=== PATIENT | male | born 1980 | race Hispanic/Latino ===

== ENCOUNTER 2018-01-16 16:41 | Observation (INO) | payer MEDICAID, OTHER ==
[2018-01-16 16:41] VITALS: BMI 30.7
--- NOTE | 2018-01-16 17:25 | ED PDOC ---
HPI: Chest Pain Chief Complaint (Provider): chest pain History Per: Patient History/Exam Limitations: no limitations Onset/Duration Of Symptoms: Days (3) Current Symptoms Are (Timing): Constant Pain Scale Rating Of: 5 Quality: Pressure, Other Associated Symptoms: Other (lightheadedness) Alleviating Factors: Other (food, Aleve) <Tiny May - Last Filed: 01/16/18 19:04> <Ana Mcgrath - Last Filed: 01/16/18 20:52> Time Seen by Provider: 01/16/18 17:12 Chief Complaint (Nursing): Chest Pain Additional Complaint(s): 37 yo, m, PMhx/o Asthma presents to ED c/o left side chest pain started 3 days ago, constant, 5/10 intensity, pressure, no exertional, no pleuritic, no reproducible, not radiated, partially alleviated with Aleve and when eating, . Reports chest pain is associated with 1 non-bloddy vomiting a day after chest pain started and occs lightheadedness. Denies fever, cough, runny nose, nasal congestion, acute SOB, pedal loretta, heartburn. Reports chronic SOB secondary to obesity. Patient reports has been using cocaine for the last 4-5 years, last used 6 days ago. PMD: Dr Ruslan Stahl (Tiny May) Supervising Attending Note - Supervising Attending Note The Documented history was done by the: Physician Stock Buyer The documented physical exam was done by the: Physician Stock Buyer, Attending Physician - Attestation: I have personally seen and examined this patient.: Yes I have fully participated in the care of the patient.: Yes I have reviewed all pertinent clinical information: Yes <Ana Mcgrath - Last Filed: 01/16/18 20:52> Past Medical History Reviewed: Historical Data, Nursing Documentation, Vital Signs - Medical History PMH: Asthma Denies: Depression - Surgical History Surgical History: No Surg Hx - Family History Family History: States: No Known Family Hx - Social History Alcohol: Social Drugs: Cocaine (for the last 4-5 years. last use 6 days ago. ) <Tiny May - Last Filed: 01/16/18 19:04> <Ana Mcgrath - Last Filed: 01/16/18 20:52> Vital Signs: Last Vital Signs Temp 98.1 F 01/16/18 20:41 Pulse 84 01/16/18 20:41 Resp 18 01/16/18 20:41 BP 127/79 01/16/18 20:41 Pulse Ox 98 01/16/18 20:41 - Home Medications Home Medications: Ambulatory Orders Medication Instructions Recorded Asthma Pump PRN 12/28/12 Albuterol HFA [Ventolin HFA 90 0.09 mg IH Q4 #1 puff 07/05/15 mcg/actuation (8 g)] Azithromycin [Zithromax Z-Сергей] 250 mg PO DAILY #6 tab 07/05/15 Guaifenesin [Mucinex] 1,200 mg PO BID #20 ter 07/05/15 Ciprofloxacin HCl [Cipro] 500 mg PO BID #20 tab 07/06/15 Metronidazole [Flagyl] 500 mg PO TID #30 tab 07/06/15 - Allergies Allergies/Adverse Reactions: Allergies Allergy/AdvReac Type Severity Reaction Status Date / Time No Known Allergies Allergy Verified 07/06/15 08:46 VERONIQUE Risk Score for UA/NSTEMI - VERONIQUE Risk Score Age > 64: NO 3 or more CAD Risk Factors: NO Known CAD (Stenosis greater than 50%): NO Aspirin use in past 7 days: NO Severe Angina: NO EKG ST changes greater than 0.5mm: NO Positive Cardiac Marker: NO VERONIQUE Score: 0 Risk %: 5% <Tiny May - Last Filed: 01/16/18 19:04> Curb-65 Severity Score - CURB-65 Severity Score Confusion: No Respiratory Rate greater than/equal to 30: No Systolic BP <90 or Diastolic BP less than/equal 60mmHg: No Age >64: No Curb-65 Score: 0 Percentage 30-day mortality: 0.6% <Tiny May - Last Filed: 01/16/18 19:04> Wells Criteria for PE - Wells Criteria for Pulmonary Embolism Clinical Signs and Symptoms of DVT: No P.E is #1 Diagnosis, or Equally Likely: No Heart Rate >100: No Immobilization at least 3 days;Surgery previous 4 weeks: No Previous, objectively diagnosed PE or DVT: No Hemoptysis: No Malignancy w/treatment within 6 months, or palliative: No Total Score: 0 <Tiny May - Last Filed: 01/16/18 19:04> Review of Systems ROS Statement: Except As Marked, All Systems Reviewed And Found Negative Cardiovascular: Positive for: Chest Pain, Light Headedness Gastrointestinal: Positive for: Vomiting <Tiny May - Last Filed: 01/16/18 19:04> Physical Exam - Reviewed Nursing Documentation Reviewed: Yes Vital Signs Reviewed: Yes - Physical Exam Appears: Positive for: Well, No Acute Distress Head Exam: Positive for: ATRAUMATIC, NORMOCEPHALIC Skin: Positive for: Normal Color Eye Exam: Positive for: Normal appearance ENT: Positive for: Normal ENT Inspection Neck: Positive for: Normal Cardiovascular/Chest: Positive for: Regular Rate, Rhythm. Negative for: Murmur Respiratory: Positive for: Normal Breath Sounds. Negative for: Crackles, Rales , Rhonchi, Wheezing Gastrointestinal/Abdominal: Positive for: Soft. Negative for: Tenderness, Mass , Distended, Guarding Back: Positive for: Normal Inspection Extremity: Positive for: Normal ROM. Negative for: Tenderness, Pedal Edema, Calf Tenderness Neurologic/Psych: Positive for: Alert <Tiny May - Last Filed: 01/16/18 19:04> - Laboratory Results Result Diagrams: 01/16/18 17:27 01/16/18 17:27 - ECG O2 Sat by Pulse Oximetry: 99 <Tiny May - Last Filed: 01/16/18 19:04> - Laboratory Results Result Diagrams: 01/16/18 17:27 01/16/18 17:27 <Ana Mcgrath - Last Filed: 01/16/18 20:52> Medical Decision Making <Tiny May - Last Filed: 01/16/18 19:04> <Ana Mcgrath - Last Filed: 01/16/18 20:52> Medical Decision Makin:20 Impression Chest pain secondary to cocaine use Old inferior MD Differential ACS, Acute pericarditis, Costochondritis CBC,CMP, troponin, Phosp, Mag Utox EKG CXR EKG: NSR, left axis deviation, inferior infartion age undetermined. Labs reviewed: CBC normal CMP: BUN/Cr 22/1.3 ALT 103, CK:226 Patient reports chest pain persists. Aspirin given. will be admitted for Observation (Tiny May) Disposition - Disposition Disposition Time: 19:05 <Tiny May - Last Filed: 01/16/18 19:04> <Ana Mcgrath - Last Filed: 01/16/18 20:52> - Clinical Impression Clinical Impression: Chest pain, Acute chest pain - Disposition Condition: FAIR
[2018-01-16 17:41] LABS: BASO % 0.5 % (0.0-2.0); EOS # 0.3 K/uL (0.0-0.7); EOS % 3.5 % (0.0-4.0); LYMPH # 2.7 K/uL (1.0-4.3); LYMPH % 30.8 % (20.0-40.0); MEAN CELL VOLUME 84.4 fl (80.0-94.0); MEAN CORPUSCULAR HEMOGLOBIN 28.2 pg (27.0-31.0); MEAN CORPUSCULAR HGB CONC 33.5 g/dL (33.0-37.0); MEAN PLATELET VOLUME 9.3 fl (7.2-11.7); MONO # 0.6 K/uL (0.0-0.8); MONO % 6.6 % (0.0-10.0); NEUT # 5.2 K/uL (1.8-7.0); NEUT % 58.6 % (50.0-75.0); NRBC % 0.1 % (0.0-0.0); RBC 5.31 Mil/uL (4.40-5.90); RED CELL DISTRIBUTION WIDTH 14.6 % (11.5-14.5); WHITE BLOOD COUNT 8.9 K/uL (4.8-10.8)
[2018-01-16 17:43] LABS: INR 1.1 (0.9-1.2); PARTIAL THROMBOPLASTIN TIME 30.6 Seconds (25.6-37.1); PROTHROMBIN TIME 12.1 Seconds (9.8-13.1)
[2018-01-16 18:04] LABS: ALBUMIN 3.9 g/dL (3.5-5.0); ALT/SGPT 102 U/L (21-72); AST/SGOT 51 U/L (17-59); BLOOD UREA NITROGEN 22 mg/dl (9-20); CALCIUM 9.1 mg/dL (8.4-10.2); GFR AFRICAN-AMERICAN > 60; GFR NON-AFRICAN AMERICAN > 60
[2018-01-16 19:15] LABS: BARBITURATES, UR NEGATIVE (NEGATIVE); BENZODIAZEPINES, UR NEGATIVE (NEGATIVE); OPIATES, UR NEGATIVE (NEGATIVE); PHENCYCLIDINE, UR POSITIVE (NEGATIVE)
[2018-01-16] MEDS ORDERED: Albuterol-Ipratrop 3 mg / 0.5 (3 ml) UD INH PRN (23:43)
[2018-01-17 05:24] VITALS: RESP 18
[2018-01-17] MEDS ORDERED: Influenza Vaccine 18yr & older 0.5 ML/45 MCG SYR IM ONE (06:00)
[2018-01-17 08:12] VITALS: O2SAT 97
[2018-01-17] MEDS ORDERED: Enoxaparin 40 mg Syringe SC SCH (09:00)
--- NOTE | 2018-01-17 10:51 | RAD ---
HISTORY: Chest pain. COMPARISON: Comparison made with prior chest radiograph 07/04/2015. TECHNIQUE: Chest PA and lateral FINDINGS: LUNGS: No active pulmonary disease. Previously noted infiltrate right upper lobe resolved. PLEURA: No significant pleural effusion identified. No pneumothorax apparent. CARDIOVASCULAR: Normal. OSSEOUS STRUCTURES: No significant abnormalities. VISUALIZED UPPER ABDOMEN: Normal. OTHER FINDINGS: None. IMPRESSION: No active disease. Interval resolution previously noted right upper lobe infiltrate
--- NOTE | 2018-01-17 11:10 | CARD ---
APPROVED REPORT EXAM: Two-dimensional and M-mode echocardiogram with Doppler and color Doppler. Other Information Quality : GoodRhythm : NSR INDICATION Chest Pain 2D DIMENSIONS IVSd1.22 (0.7-1.1cm)LVDd3.82 (3.9-5.9cm) LVOT Diameter2.12 (1.8-2.4cm)PWd0.98 (0.7-1.1cm) IVSs1.35 (0.8-1.2cm)LVDs2.31 (2.5-4.0cm) FS (%) 39.4 %PWs1.18 (0.8-1.2cm) M-Mode DIMENSIONS Left Atrium (MM)3.61 (2.5-4.0cm)IVSd1.38 (0.7-1.1cm) Aortic Root3.36 (2.2-3.7cm)LVDd4.47 (4.0-5.6cm) Aortic Cusp Exc.2.29 (1.5-2.0cm)PWd1.19 (0.7-1.1cm) IVSs2.23 cmFS (%) 52 % LVDs2.12 (2.0-3.8cm)PWs1.85 cm Mitral Valve MV E Fvvrxxox73.0cm/sMV DECEL [id number] A Kmllkask46.3cm/s MV SZS84rkE/A ratio1.1MVA (PHT)3.27cm2 TDI Lateral E' Peak V10.51cm/sMedial E' Peak V6.84cm/sE/Lateral E'5.2 E/Medial E'8.0 Pulmonary Valve PV Peak Nvggnoma692.2cm/s LEFT VENTRICLE The left ventricle is normal size. There is normal left ventricular wall thickness. The left ventricular function is normal. The left ventricular ejection fraction is within the normal range. The Ejection Fraction is 65-70%. There is normal LV segmental wall motion. The left ventricular diastolic function is normal. RIGHT VENTRICLE The right ventricle is normal size. The right ventricular systolic function is normal. ATRIA The left atrium size is normal. The right atrium size is normal. AORTIC VALVE The aortic valve is normal in structure. No aortic regurgitation is present. There is no aortic valvular stenosis. MITRAL VALVE The mitral valve is normal in structure. There is no mitral valve stenosis. There is no mitral valve regurgitation noted. TRICUSPID VALVE The tricuspid valve is normal in structure. There is no tricuspid valve regurgitation noted. PULMONIC VALVE The pulmonary valve is normal in structure. There is no pulmonic valvular regurgitation. GREAT VESSELS The aortic root is normal in size. The IVC is normal in size and collapses >50% with inspiration. PERICARDIAL EFFUSION The pericardium appears normal. <Conclusion> The left ventricle is normal size. The left ventricular function is normal. The left ventricular ejection fraction is within the normal range. The Ejection Fraction is 65-70%.
[2018-01-17 12:09] VITALS: BP 134/80; PULSE 79; TEMP 97.6
--- NOTE | 2018-01-17 12:12 | CARD ---
APPROVED REPORT EKG Measurement Heart [id number] <Conclusion> Normal sinus rhythm Left axis deviation Inferior infarct, age undetermined Abnormal ECG
--- NOTE | 2018-01-18 05:11 | CP.PCM.HP ---
History of Present Illness - History of Present Illness History of Present Illness: Cc: Chest pain 37 year old male with a pmhx of asthma presents to ED with c/o of left sided chest pain that started 3 days ago. States the pain is constant, feels like pressure with an intensity of 5/10. The pain is not exertional, not reproducible , not radiated. Pain is relieved partially by Aleve and when eating, . Reports chest pain was associated with one non-bloody vomiting a day after chest pain started. He reports occasional lightheadedness but no headaches. Denies fever, cough, runny nose, nasal congestion, acute SOB, pedal loretta, heartburn. Reports chronic SOB secondary to obesity. Patient states has been using cocaine for the last 4-5 years with the last use 6 days ago. Present on Admission - Present on Admission Any Indicators Present on Admission: No Review of Systems - Review of Systems All systems: reviewed and no additional remarkable complaints except (as stated) - Cardiovascular Cardiovascular: As Per HPI, Chest Pain, Dyspnea on Exertion - Respiratory Respiratory: As Per HPI, Dyspnea on Exertion Past Patient History - Tetanus Immunizations Tetanus Immunization: Up to Date - Past Medical History & Family History Past Medical History?: Yes - Past Social History Smoking Status: Former Smoker Drugs: Cocaine - CARDIAC Hx Cardiac Disorders: No - PULMONARY Hx Respiratory Disorders: Yes (asthma) Hx Asthma: Yes - NEUROLOGICAL Hx Neurological Disorder: No - HEENT Hx HEENT Problems: No - RENAL Hx Chronic Kidney Disease: No - ENDOCRINE/METABOLIC Hx Endocrine Disorders: No - HEMATOLOGICAL/ONCOLOGICAL Hx Blood Disorders: No Hx AIDS: No Hx Human Immunodeficiency Virus (HIV): No - INTEGUMENTARY Hx Dermatological Problems: No - MUSCULOSKELETAL/RHEUMATOLOGICAL Hx Musculoskeletal Disorders: No Hx Falls: No - GASTROINTESTINAL Hx Gastrointestinal Disorders: No - GENITOURINARY/GYNECOLOGICAL Hx Genitourinary Disorders: No - PSYCHIATRIC Hx Psychophysiologic Disorder: No Hx Substance Use: No - SURGICAL HISTORY Hx Surgeries: No - ANESTHESIA Hx Anesthesia: No Hx Anesthesia Reactions: No Hx Malignant Hyperthermia: No Has any member of the family had a problem w/ anesthesia?: No Meds Home Medications: Home Medication List Medication Instructions Recorded Confirmed Type Albuterol HFA [Ventolin HFA 90 0.09 mg IH Q4 #1 puff 01/17/18 Rx mcg/actuation (8 g)] Sulfamethoxazole/Trimethoprim 1 tab PO Q12 #10 tab 01/17/18 Rx [Bactrim DS 800 mg-160 mg] Allergies/Adverse Reactions: Allergies Allergy/AdvReac Type Severity Reaction Status Date / Time No Known Allergies Allergy Verified 07/06/15 08:46 Physical Exam - Constitutional Appears: Well, No Acute Distress - Head Exam Head Exam: ATRAUMATIC, NORMOCEPHALIC - Eye Exam Eye Exam: EOMI, Normal appearance, PERRL Pupil Exam: NORMAL ACCOMODATION - ENT Exam ENT Exam: Mucous Membranes Moist, Normal Exam - Neck Exam Neck exam: Positive for: Normal Inspection - Respiratory Exam Respiratory Exam: Clear to Auscultation Bilateral, NORMAL BREATHING PATTERN - Cardiovascular Exam Cardiovascular Exam: REGULAR RHYTHM, +S1, +S2 - GI/Abdominal Exam GI & Abdominal Exam: Normal Bowel Sounds - Rectal Exam Rectal Exam: Deferred - Extremities Exam Extremities exam: Positive for: normal inspection - Back Exam Back exam: NORMAL INSPECTION - Neurological Exam Neurological exam: Alert, Oriented x3 - Psychiatric Exam Psychiatric exam: Normal Affect, Normal Mood - Skin Skin Exam: Normal Color, Warm Results - Vital Signs Recent Vital Signs: Last Vital Signs Temp 97.6 F 01/17/18 12:08 Pulse 79 01/17/18 12:08 Resp 18 01/17/18 12:08 BP 134/80 01/17/18 12:08 Pulse Ox 97 01/17/18 12:08 - Labs Result Diagrams: 01/16/18 17:27 01/16/18 17:27 Labs: Laboratory Results - last 24 hr 01/17/18 01/17/18 04:20 10:18 Troponin I < 0.0120 Triglycerides 127 Cholesterol 150 LDL Cholesterol Direct 97 HDL Cholesterol 25 L TSH 3rd Generation 2.49 - EKG Data EKG comments: Normal sinus rhythm Left axis deviation Inferior infarct, age undetermined Abnormal ECG - Imaging and Cardiology Chest x-ray Additional comment: HISTORY: Chest pain. COMPARISON: Comparison made with prior chest radiograph 07/04/2015. TECHNIQUE: Chest PA and lateral FINDINGS: LUNGS: No active pulmonary disease. Previously noted infiltrate right upper lobe resolved. PLEURA: No significant pleural effusion identified. No pneumothorax apparent. CARDIOVASCULAR: Normal. OSSEOUS STRUCTURES: No significant abnormalities. VISUALIZED UPPER ABDOMEN: Normal. OTHER FINDINGS: None. IMPRESSION: No active disease. Interval resolution previously noted right upper lobe infiltrate Assessment & Plan (1) Chest pain Assessment and Plan: 37 year old male with pmhx of asthma and obesity presenting with chest pain most likely from cocaine use. No chest pain at present Echo reviewed - normal Troponins negative x 3 Urine toxicology - positive cocaine, PCP No other acute findings Counseled on diet and exercise Will d/c home, f/u outpatient Status: Acute
--- NOTE | 2018-01-18 05:12 | CP.PCM.DIS ---
Provider - Provider Date of Admission: 01/16/18 19:12 Attending physician: Delgado Miller MD Time Spent in preparation of Discharge (in minutes): 15 Diagnosis - Discharge Diagnosis (1) Chest pain Status: Acute Hospital Course - Lab Results Lab Results: Most Recent Lab Values WBC 8.9 K/uL (4.8-10.8) 01/16/18 17: RBC 5.31 Mil/uL (4.40-5.90) 01/16/18 17: Hgb 15.0 g/dL (12.0-18.0) 01/16/18 17: Hct 44.8 % (35.0-51.0) 01/16/18 17: MCV 84.4 fl (80.0-94.0) 01/16/18: MCH 28.2 pg (27.0-31.0) 01/16/18: MCHC 33.5 g/dL (33.0-37.0) 01/16/18: RDW 14.6 % (11.5-14.5) H 01/16/18 17: Plt Count 224 K/uL (130-400) 01/16/18 17: MPV 9.3 fl (7.2-11.7) 01/16/18 17: Neut % (Auto) 58.6 % (50.0-75.0) 01/16/18 17: Lymph % (Auto) 30.8 % (20.0-40.0) 01/16/18: Hancock % (Auto) 6.6 % (0.0-10.0) 01/16/18: Eos % (Auto) 3.5 % (0.0-4.0) 01/16/18: Baso % (Auto) 0.5 % (0.0-2.0) 01/16/18: Neut # (Auto) 5.2 K/uL (1.8-7.0) 01/16/18 17: Lymph # (Auto) 2.7 K/uL (1.0-4.3) 01/16/18 17: Hancock # (Auto) 0.6 K/uL (0.0-0.8) 01/16/18 17:27 Eos # (Auto) 0.3 K/uL (0.0-0.7) 01/16/18 17:27 Baso # (Auto) 0.0 K/uL (0.0-0.2) 01/16/18 17:27 PT 12.1 Seconds (9.8-13.1) 01/16/18 17:27 INR 1.1 (0.9-1.2) 01/16/18 17:27 APTT 30.6 Seconds (25.6-37.1) 01/16/18 17:27 Sodium 143 mmol/l (132-148) 01/16/18 17:27 Potassium 4.1 MMOL/L (3.6-5.0) 01/16/18 17: Chloride 106 mmol/L (98-107) 01/16/18 17:27 Carbon Dioxide 21 mmol/L (22-30) L 01/16/18 17:27 Anion Gap 20 (10-20) 01/16/18 17:27 BUN 22 mg/dl (9-20) H 01/16/18 17:27 Creatinine 1.3 mg/dl (0.8-1.5) 01/16/18 17:27 Est GFR ( Amer) > 60 01/16/18 17:27 Est GFR (Non-Af Amer) > 60 01/16/18 17:27 Random Glucose 125 mg/dL (75-110) H 01/16/18 17:27 Calcium 9.1 mg/dL (8.4-10.2) 01/16/18 17: Phosphorus 3.3 mg/dl (2.5-4.5) 01/16/18 17:27 Magnesium 2.2 MG/DL (1.6-2.3) 01/16/18 17:27 Total Bilirubin 0.3 mg/dl (0.2-1.3) 01/16/18 17:27 AST 51 U/L (17-59) 01/16/18 17:27 ALT 102 U/L (21-72) H D 01/16/18 17:27 Alkaline Phosphatase 74 U/L (38-126) 01/16/18 17:27 Total Creatine Kinase 226 U/L (55-170) H 01/16/18 17:27 Troponin I < 0.0120 ng/mL (0.00-0.120) 01/17/18 10:18 Total Protein 7.7 G/DL (6.3-8.2) 01/16/18 17:27 Albumin 3.9 g/dL (3.5-5.0) 01/16/18 17:27 Globulin 3.8 gm/dL (2.2-3.9) 01/16/18 17: Albumin/Globulin Ratio 1.0 (1.0-2.1) 01/16/18 17:27 Triglycerides 127 mg/DL (0-149) 01/17/18 04:20 Cholesterol 150 mg/dL (0-199) 01/17/18 04:20 LDL Cholesterol Direct 97 mg/dL (0-129) 01/17/18 04:20 HDL Cholesterol 25 MG/DL (30-70) L 01/17/18 04:20 TSH 3rd Generation 2.49 mIU/ML (0.46-4.68) 01/17/18 04:20 Urine Opiates Screen Negative (NEGATIVE) 01/16/18 18:45 Urine Methadone Screen Negative (NEGATIVE) 01/16/18 18:45 Ur Barbiturates Screen Negative (NEGATIVE) 01/16/18 18:45 Ur Phencyclidine Scrn Positive (NEGATIVE) H 01/16/18 18:45 Ur Amphetamines Screen Negative (NEGATIVE) 01/16/18 18:45 U Benzodiazepines Scrn Negative (NEGATIVE) 01/16/18 18:45 U Oth Cocaine Metabols Positive (NEGATIVE) H 01/16/18 18:45 U Cannabinoids Screen Negative (NEGATIVE) 01/16/18 18:45 - Hospital Course Hospital Course: 37 year old obese male with a pmhx of asthma who presented to ED with c/o chest pain most likely related to cocaine use. Cardiac workup was normal. The patient was discharged home with instructions for outpatient follow up. Discharge Exam - Head Exam Head Exam: ATRAUMATIC, NORMOCEPHALIC - Respiratory Exam Respiratory Exam: Clear to PA & Lateral, NORMAL BREATHING PATTERN - Cardiovascular Exam Cardiovascular Exam: REGULAR RHYTHM, +S1, +S2 - GI/Abdominal Exam GI & Abdominal Exam: Normal Bowel Sounds, Soft - Neurological Exam Neurological exam: Alert, Oriented x3 - Psychiatric Exam Psychiatric exam: Normal Affect, Normal Mood - Skin Skin Exam: Normal Color, Warm Discharge Plan - Discharge Medications Prescriptions: Sulfamethoxazole/Trimethoprim [Bactrim DS 800 mg-160 mg] 1 tab PO Q12 #10 tab Albuterol HFA [Ventolin HFA 90 mcg/actuation (8 g)] 0.09 mg IH Q4 #1 puff - Follow Up Plan Condition: STABLE Disposition: HOME/ ROUTINE Instructions: Chest Pain (DC) Additional Instructions: follow up with pmd in 1 week Referrals: Delgado Miller MD [Staff Provider] -
== END 2018-01-17 13:42 | disposition home or self-care (01) ==
LOC: H.ER 16:41 → H.ERHOLD 19:12 → H.TEL 20:20
PROVIDERS: ADMIT Internal Medicine; ATTEND Internal Medicine
DX: R07.89 Other chest pain (principal); F14.90 Cocaine use, unspecified, uncomplicated; J45.909 Unspecified asthma, uncomplicated; E66.9 Obesity, unspecified; Z68.37 Body mass index [BMI] 37.0-37.9, adult; R42 Dizziness and giddiness; I25.2 Old myocardial infarction; Z23 Encounter for immunization; Z87.891 Personal history of nicotine dependence
CPT/HCPCS: 36415; 71046; 80053; 80061; 80324; 80345; 80346; 80349; 80353; 80358; 80361; 82550; 83735; 83992; 84100; 84443; 84484; 85025; 85610; 85730; 90471; 93005; 93306; 99285; G0378; J1650; Q2035

== ENCOUNTER 2018-02-19 00:54 | Emergency (ER) | payer MEDICAID ==
[2018-02-19 00:55] VITALS: BMI 30.7
[2018-02-19 01:03] VITALS: TEMP 98.3
[2018-02-19] MEDS ORDERED: DiphenhydrAMINE 50 mg/ml Inj IM STA (01:30)
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
[2018-02-19] MEDS ORDERED: DiphenhydrAMINE 50 mg/ml Inj ONE (01:46)
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
[2018-02-19 02:03] VITALS: BP 135/89; PULSE 90; RESP 20
[2018-02-19 03:14] VITALS: O2SAT 98
== END 2018-02-19 03:33 | disposition home or self-care (01) ==
LOC: H.ER 00:54
DX: R51 Headache (principal); S06.0X0A Concussion without loss of consciousness, initial encounter; Y04.0XXA Assault by unarmed brawl or fight, initial encounter; Y92.89 Other specified places as the place of occurrence of the external cause
CPT/HCPCS: 70450; 96372; 99285; J1200; J2765

== ENCOUNTER 2018-03-13 04:28 | Emergency (ER) | payer MEDICAID ==
[2018-03-13 04:40] VITALS: BMI 38.7
[2018-03-13 04:45] VITALS: TEMP 98.6; O2SAT 97
--- NOTE | 2018-03-13 04:56 | ED PDOC ---
HPI: CCC, URI, Sore Throat Time Seen by Provider: 03/13/18 04:45 Chief Complaint (Nursing): ENT Problem Chief Complaint (Provider): right ear pain History Per: Patient History/Exam Limitations: no limitations Onset/Duration Of Symptoms: Hrs (1) Current Symptoms Are (Timing): Still Present Ear Symptoms: Right: Ear Pain, Ear Fullness Additional Complaint(s): 37 y/o male presents for evaluation of right ear pain x 1 hour. Patient states he is getting over a cold and has been experiencing "fullness" in right ear x 2 days, states he has been using Qtips to clean ear since then. Patient reports stabbing pain to right ear as of one hour ago. Denies fever, drainage from ear. Past Medical History Reviewed: Historical Data, Nursing Documentation, Vital Signs Vital Signs: Last Vital Signs Temp 98.6 F 03/13/18 04:41 Pulse 102 H 03/13/18 05:34 Resp 16 03/13/18 05:34 BP 128/82 03/13/18 05:34 Pulse Ox 97 03/13/18 05:34 - Medical History PMH: Asthma Denies: Depression, HIV, Chronic Kidney Disease - Surgical History Surgical History: No Surg Hx - Family History Family History: States: Unknown Family Hx - Home Medications Home Medications: Ambulatory Orders Medication Instructions Recorded Albuterol HFA [Ventolin HFA 90 0.09 mg IH Q4 #1 puff 01/17/18 mcg/actuation (8 g)] Sulfamethoxazole/Trimethoprim 1 tab PO Q12 #10 tab 01/17/18 [Bactrim DS 800 mg-160 mg] Amoxicillin 500 mg PO BID #13 tablet 03/13/18 Ciprofloxacin/Dexamethasone 4 drop OT BID #1 bottle 03/13/18 [Ciprodex 0.3%-0.1% 7.5 Ml] Ibuprofen [Motrin Tab] 800 mg PO Q8 PRN #20 tab 03/13/18 - Allergies Allergies/Adverse Reactions: Allergies Allergy/AdvReac Type Severity Reaction Status Date / Time No Known Allergies Allergy Verified 03/13/18 04:40 Review of Systems ROS Statement: Except As Marked, All Systems Reviewed And Found Negative ENT: Positive for: Ear Pain Physical Exam - Reviewed Nursing Documentation Reviewed: Yes Vital Signs Reviewed: Yes - Physical Exam Appears: Positive for: Well, Non-toxic, No Acute Distress Head Exam: Positive for: ATRAUMATIC, NORMAL INSPECTION, NORMOCEPHALIC Skin: Positive for: Normal Color Eye Exam: Positive for: Normal appearance ENT: Positive for: TM Is/Are (right TM erythema with decreased light reflex. Mild edema right EAC, with + palpation of tragus. No FB. No tenderness with speculum insertion or upon pinna manipulation. Left TM clear. Left EAC clear. No mastoid erythema/tenderness bilaterally) Cardiovascular/Chest: Positive for: Regular Rate, Rhythm Respiratory: Positive for: Normal Breath Sounds Neurologic/Psych: Positive for: Alert, Oriented - ECG O2 Sat by Pulse Oximetry: 97 - Progress ED Course And Treament: Toradol IM, amox PO Patient educated on findings, discharged with rx amoxicillin, ciprodex, ibuprofen Advised follow up PMD 2-3 days. Return precautions given Disposition - Clinical Impression Clinical Impression: Right otitis media, Right otitis externa - Patient ED Disposition Is Patient to be Admitted: No Counseled Patient/Family Regarding: Diagnosis, Need For Followup, Rx Given - Disposition Referrals: Adama Coughlin MD [Staff Provider] - Disposition: Routine/Home Disposition Time: 05:01 Condition: STABLE Prescriptions: Amoxicillin 500 mg PO BID #13 tablet Ciprofloxacin/Dexamethasone [Ciprodex 0.3%-0.1% 7.5 Ml] 4 drop OT BID #1 bottle Ibuprofen [Motrin Tab] 800 mg PO Q8 PRN #20 tab PRN Reason: Pain, Moderate (4-7) Instructions: Ear Infections (Otitis Media), Outer Ear Infection Forms: [employer] [facility] (Vietnamese)
[2018-03-13 05:36] VITALS: BP 128/82; PULSE 102; RESP 16
== END 2018-03-13 06:00 | disposition home or self-care (01) ==
LOC: H.ER 04:28
DX: H66.91 Otitis media, unspecified, right ear (principal); H60.91 Unspecified otitis externa, right ear; J45.909 Unspecified asthma, uncomplicated
CPT/HCPCS: 96372; 99283; J1885

== ENCOUNTER 2018-05-13 09:11 | Emergency (ER) | payer MEDICAID ==
[2018-05-13 09:11] VITALS: BMI 38.7
[2018-05-13 09:16] VITALS: RESP 18
--- NOTE | 2018-05-13 09:31 | ED PDOC ---
HPI: Psych/Substance Abuse Time Seen by Provider: 05/13/18 09:15 Chief Complaint (Nursing): Alcohol Ingestion Chief Complaint (Provider): Alcohol Intoxication History Per: Patient History/Exam Limitations: no limitations Suicide/Self Injury Attempted (Context): None Additional Complaint(s): 37 year old male is brought into the emergency department by emergency medical services for alcohol intoxication. Patient reports that he had too much to drink lastnight and woke up this morning in the hallway of someone's apartment building. He states that he is feeling fine and offers no medical complaints. PMD: Dr. Crandall Past Medical History Reviewed: Historical Data, Nursing Documentation, Vital Signs Vital Signs: Last Vital Signs Temp 98.1 F 05/13/18 09:15 Pulse 90 05/13/18 09:15 Resp 18 05/13/18 09:15 BP 140/93 H 05/13/18 09:15 Pulse Ox 99 05/13/18 09:15 - Medical History PMH: Asthma Denies: Depression, HIV, Chronic Kidney Disease - Surgical History Surgical History: No Surg Hx - Family History Family History: States: Unknown Family Hx - Social History Current smoker - smoking cessation education provided: No Alcohol: Social Drugs: Other (marijuana) - Home Medications Home Medications: Ambulatory Orders Medication Instructions Recorded Albuterol HFA [Ventolin HFA 90 0.09 mg IH Q4 #1 puff 01/17/18 mcg/actuation (8 g)] Sulfamethoxazole/Trimethoprim 1 tab PO Q12 #10 tab 01/17/18 [Bactrim DS 800 mg-160 mg] Amoxicillin 500 mg PO BID #13 tablet 03/13/18 Ciprofloxacin/Dexamethasone 4 drop OT BID #1 bottle 03/13/18 [Ciprodex 0.3%-0.1% 7.5 Ml] Ibuprofen [Motrin Tab] 800 mg PO Q8 PRN #20 tab 03/13/18 - Allergies Allergies/Adverse Reactions: Allergies Allergy/AdvReac Type Severity Reaction Status Date / Time No Known Allergies Allergy Verified 05/13/18 09:14 Review of Systems ROS Statement: Except As Marked, All Systems Reviewed And Found Negative Cardiovascular: Negative for: Chest Pain, Palpitations Psych: Positive for: Other (alcohol intoxication) Physical Exam - Reviewed Nursing Documentation Reviewed: Yes Vital Signs Reviewed: Yes - Physical Exam Appears: Positive for: Non-toxic, No Acute Distress Head Exam: Positive for: ATRAUMATIC, NORMAL INSPECTION, NORMOCEPHALIC Skin: Positive for: Normal Color, Warm, Dry. Negative for: Rash Eye Exam: Positive for: Normal appearance, EOMI, PERRL. Negative for: Nystagmus ENT: Positive for: Normal ENT Inspection. Negative for: Nasal Congestion, Tonsillar Exudate, Tonsillar Swelling Neck: Positive for: Normal, Painless ROM, Supple Cardiovascular/Chest: Positive for: Regular Rate, Rhythm, Chest Non Tender. Negative for: Murmur, Tachycardia Respiratory: Positive for: Normal Breath Sounds. Negative for: Rales, Rhonchi, Wheezing, Respiratory Distress Gastrointestinal/Abdominal: Positive for: Normal Exam, Bowel Sounds, Soft. Negative for: Tenderness, Mass, Guarding, Rebound Back: Positive for: Normal Inspection. Negative for: L CVA Tenderness, R CVA Tenderness, Vertebral Tenderness Extremity: Positive for: Normal ROM. Negative for: Tenderness, Calf Tenderness , Deformity, Swelling Neurologic/Psych: Positive for: Alert, Oriented, Gait. Negative for: Motor/ Sensory Deficits - ECG O2 Sat by Pulse Oximetry: 99 (RA) Pulse Ox Interpretation: Normal Medical Decision Making Medical Decision Makin Initial Impression 37 year old male presenting for alcohol intoxication Initial Plan: * Reevaluation Documented by Yadi Plummer acting as a scribe for Lorenza Feliz MD. All medical record entries made by the Scribe were at my direction and personally dictated by me. I have reviewed the chart and agree that the record accurately reflects my personal performance of the history, physical exam, medical decision making, and the department course for this patient. I have also personally directed, reviewed, and agree with the discharge instructions and disposition. Disposition - Clinical Impression Clinical Impression: Alcohol intoxication - Patient ED Disposition Is Patient to be Admitted: No Doctor Will See Patient In The: Office Counseled Patient/Family Regarding: Diagnosis, Need For Followup - Disposition Referrals: Kaiden Crandall MD [Family Provider] - Disposition: Routine/Home Disposition Time: 09:30 Condition: STABLE Instructions: Alcohol Use - When Is Drinking a Problem? Forms: [facility] (Sammarinese) - POA Present On Arrival: None
[2018-05-13 10:10] VITALS: BP 138/82; PULSE 88; TEMP 98.5; O2SAT 100
== END 2018-05-13 09:55 | disposition home or self-care (01) ==
LOC: H.ER 09:11
DX: F10.129 Alcohol abuse with intoxication, unspecified (principal); J45.909 Unspecified asthma, uncomplicated

== ENCOUNTER 2018-07-11 19:58 | Emergency (ER) | payer MEDICAID ==
[2018-07-11 19:59] VITALS: BMI 38.7
[2018-07-11 20:35] VITALS: BP 119/67; PULSE 88; RESP 16; TEMP 98.4; O2SAT 98
--- NOTE | 2018-07-11 21:00 | ED PDOC ---
HPI: Skin/Bite Injury Time Seen by Provider: 07/11/18 20:39 Chief Complaint (Nursing): Abnormal Skin Integrity Chief Complaint (Provider): Rash on hands and feet x 3 days - No fever History Per: Patient History/Exam Limitations: no limitations Onset/Duration Of Symptoms: Days Current Symptoms Are (Timing): Still Present Quality Of Symptoms: Itching Severity: Mild Additional Complaint(s): 38 yo male with no medical problems presents for evaluation of rash which began 3 days ago on the plantar surface of his feet and is now on the palm of his hands. No fever/chills. Pt otherwise feels normal. PT reports mild itchiness. Past Medical History Reviewed: Historical Data, Nursing Documentation, Vital Signs Vital Signs: Last Vital Signs Temp 98.4 F 07/11/18 20:31 Pulse 88 07/11/18 20:31 Resp 16 07/11/18 20:31 BP 119/67 07/11/18 20:31 Pulse Ox 98 07/11/18 20:31 - Medical History PMH: Asthma Denies: Depression, HIV, Chronic Kidney Disease - Surgical History Surgical History: No Surg Hx - Family History Family History: States: Unknown Family Hx - Living Arrangements Living Arrangements: With Family - Social History Current smoker - smoking cessation education provided: No - Home Medications Home Medications: Ambulatory Orders Medication Instructions Recorded Albuterol HFA [Ventolin HFA 90 0.09 mg IH Q4 #1 puff 01/17/18 mcg/actuation (8 g)] Sulfamethoxazole/Trimethoprim 1 tab PO Q12 #10 tab 01/17/18 [Bactrim DS 800 mg-160 mg] Amoxicillin 500 mg PO BID #13 tablet 03/13/18 Ciprofloxacin/Dexamethasone 4 drop OT BID #1 bottle 03/13/18 [Ciprodex 0.3%-0.1% 7.5 Ml] Ibuprofen [Motrin Tab] 800 mg PO Q8 PRN #20 tab 03/13/18 predniSONE [predniSONE Tab] 20 mg PO DAILY #12 tab 07/11/18 - Allergies Allergies/Adverse Reactions: Allergies Allergy/AdvReac Type Severity Reaction Status Date / Time No Known Allergies Allergy Verified 07/11/18 20:31 Review of Systems ROS Statement: Except As Marked, All Systems Reviewed And Found Negative Constitutional: Negative for: Fever, Chills Skin: Positive for: Rash Physical Exam - Reviewed Nursing Documentation Reviewed: Yes Vital Signs Reviewed: Yes - Physical Exam Appears: Positive for: Well, Non-toxic, No Acute Distress Head Exam: Positive for: ATRAUMATIC, NORMAL INSPECTION, NORMOCEPHALIC Skin: Positive for: Warm. Negative for: Normal Color (erythematous papules on the palms and soles ) Eye Exam: Positive for: Normal appearance ENT: Positive for: Normal ENT Inspection Neck: Positive for: Normal Respiratory: Negative for: Accessory Muscle Use, Respiratory Distress Back: Positive for: Normal Inspection Extremity: Positive for: Normal ROM Neurologic/Psych: Positive for: Alert, Oriented - ECG O2 Sat by Pulse Oximetry: 98 Disposition - Clinical Impression Clinical Impression: Hand, foot and mouth disease - Patient ED Disposition Is Patient to be Admitted: No Counseled Patient/Family Regarding: Diagnosis, Need For Followup, Rx Given - Disposition Referrals: [facility] [Outside] Disposition: Routine/Home Disposition Time: 21:02 Condition: STABLE Prescriptions: predniSONE [predniSONE Tab] 20 mg PO DAILY #12 tab Instructions: Viral Exanthem (DC)
== END 2018-07-11 21:21 | disposition home or self-care (01) ==
LOC: H.ER 19:58
DX: B08.4 Enteroviral vesicular stomatitis with exanthem (principal)

== ENCOUNTER 2018-11-13 11:49 | Emergency (ER) | payer MEDICAID ==
[2018-11-13 11:50] VITALS: BMI 38.7
[2018-11-13] MEDS ORDERED: Sodium Chloride 0.9% 1,000 ML IV STA (13:09)
--- NOTE | 2018-11-13 13:23 | ED PDOC ---
HPI: General Adult Time Seen by Provider: 11/13/18 12:39 Chief Complaint (Nursing): GI Problem Chief Complaint (Provider): GI Problem History Per: Patient History/Exam Limitations: no limitations Onset/Duration Of Symptoms: Days (x1) Current Symptoms Are (Timing): Still Present Additional Complaint(s): 38 y/o male with a PMHx of Asthma presents to the ED for evaluation of abdominal pain associated with non-bloody, non-bilious vomiting, non-bloody diarrhea and generalized weakness, onset yesterday. Patient reports symptoms began after eating [employer]. Patient describes abdominal pain as burning, cramping and bubbling. Patient admits to used marijuana and PCP yesterday. Otherwise, patient denies chest pain, shortness of breath, headache, dizziness and alcohol use. PMD: none Past Medical History Reviewed: Historical Data, Nursing Documentation, Vital Signs Vital Signs: Last Vital Signs Temp 98.1 F 11/13/18 11:54 Pulse 136 H 11/13/18 11:54 Resp 19 11/13/18 11:54 BP 134/84 11/13/18 11:54 Pulse Ox 96 11/13/18 11:54 - Medical History PMH: Asthma Denies: Depression, HIV, Chronic Kidney Disease - Surgical History Surgical History: No Surg Hx - Family History Family History: States: Unknown Family Hx - Social History Drugs: Other (Cocaine and PCP) - Home Medications Home Medications: Ambulatory Orders Medication Instructions Recorded Albuterol HFA [Ventolin HFA 90 0.09 mg IH Q4 #1 puff 01/17/18 mcg/actuation (8 g)] Sulfamethoxazole/Trimethoprim 1 tab PO Q12 #10 tab 01/17/18 [Bactrim DS 800 mg-160 mg] Amoxicillin 500 mg PO BID #13 tablet 03/13/18 Ciprofloxacin/Dexamethasone 4 drop OT BID #1 bottle 03/13/18 [Ciprodex 0.3%-0.1% 7.5 Ml] Ibuprofen [Motrin Tab] 800 mg PO Q8 PRN #20 tab 03/13/18 predniSONE [predniSONE Tab] 20 mg PO DAILY #12 tab 07/11/18 Dicyclomine [Dicyclomine HCl] 10 mg PO DAILY PRN 5 Days cap 11/13/18 Ondansetron [Zofran] 4 mg PO Q8H PRN #6 tab 11/13/18 - Allergies Allergies/Adverse Reactions: Allergies Allergy/AdvReac Type Severity Reaction Status Date / Time No Known Allergies Allergy Verified 07/11/18 20:31 Review of Systems ROS Statement: Except As Marked, All Systems Reviewed And Found Negative Gastrointestinal: Positive for: Vomiting, Abdominal Pain, Diarrhea Psych: Positive for: Other (substance abuse (Marijuana and PCP)) Physical Exam - Reviewed Nursing Documentation Reviewed: Yes Vital Signs Reviewed: Yes - Physical Exam Appears: Positive for: No Acute Distress Head Exam: Positive for: ATRAUMATIC, NORMOCEPHALIC Skin: Positive for: Normal Color, Warm, Dry Eye Exam: Positive for: Normal appearance, EOMI, PERRL Neck: Positive for: Normal, Painless ROM, Supple Cardiovascular/Chest: Positive for: Regular Rate, Rhythm. Negative for: Murmur Respiratory: Positive for: Normal Breath Sounds. Negative for: Respiratory Distress Gastrointestinal/Abdominal: Positive for: Normal Exam, Soft. Negative for: Tenderness Back: Positive for: Normal Inspection. Negative for: L CVA Tenderness, R CVA Tenderness, Vertebral Tenderness Extremity: Positive for: Normal ROM. Negative for: Pedal Edema, Deformity Neurologic/Psych: Positive for: Alert, Oriented. Negative for: Motor/Sensory Deficits - Laboratory Results Result Diagrams: 11/13/18 13:40 11/13/18 15:05 Lab Results: pcp and marijuana - ECG O2 Sat by Pulse Oximetry: 96 (RA) Pulse Ox Interpretation: Normal - Progress ED Course And Treament: 1636: Stable. AAOx3. Ambulated with no issues. Tolerated PO. Fu with pcp. Pain free. Medical Decision Making Medical Decision Making: Time: 1309 Plan: -- Zofran Inj 4 mg IV -- Pepcid 20 mg IVP -- Sodium Chloride IV 1000 mls/hr -- Bentyl 10 mg PO -- CBC with differentials -- ED Urine Dipstick -- Urine Drug Screen Time: 1502 Plan: -- Alcohol Serum -- CMP -- Lipase Scribe Attestation: Documented by Glenn Bonilla, acting as a scribe for Grupo Blackwell MD. Provider Scribe Attestation: All medical record entries made by the Scribe were at my direction and personally dictated by me. I have reviewed the chart and agree that the record accurately reflects my personal performance of the history, physical exam, medical decision making, and the department course for this patient. I have also personally directed, reviewed, and agree with the discharge instructions and disposition. Disposition - Clinical Impression Clinical Impression: Dehydration, Drug abuse, Vomiting and diarrhea - Patient ED Disposition Is Patient to be Admitted: No Counseled Patient/Family Regarding: Studies Performed, Diagnosis, Need For Followup, Rx Given - Disposition Referrals: [facility] [Outside] - 11/14/18 Disposition: Routine/Home Disposition Time: 16:38 Condition: STABLE Additional Instructions: Return if not better in 3 days. Prescriptions: Dicyclomine [Dicyclomine HCl] 10 mg PO DAILY PRN 5 Days cap PRN Reason: Diarrhea Ondansetron [Zofran] 4 mg PO Q8H PRN #6 tab PRN Reason: Nausea/Vomiting Instructions: Nausea and Vomiting, Adult, Diarrhea in Adolescents and Adults, Dehydration, Adult (DC), Drug Abuse and Drug Addiction (DC)
[2018-11-13 14:06] LABS: BASO % 0.4 % (0.0-2.0); EOS % 0.2 % (0.0-4.0); HEMOGLOBIN 15.7 g/dL (12.0-18.0); LYMPH % 10.8 % (20.0-40.0); MEAN CELL VOLUME 85.9 fl (80.0-94.0); MEAN CORPUSCULAR HEMOGLOBIN 28.2 pg (27.0-31.0); MEAN CORPUSCULAR HGB CONC 32.9 g/dL (33.0-37.0); MEAN PLATELET VOLUME 9.1 fl (7.2-11.7); MONO # 0.4 K/uL (0.0-0.8); MONO % 4.8 % (0.0-10.0); NEUT # 7.7 K/uL (1.8-7.0); NEUT % 83.8 % (50.0-75.0); NRBC % 0.1 % (0.0-0.0); RBC 5.54 Mil/uL (4.40-5.90); RED CELL DISTRIBUTION WIDTH 14.6 % (11.5-14.5); WHITE BLOOD COUNT 9.2 K/uL (4.8-10.8)
[2018-11-13 15:34] LABS: ALB/GLOB RATIO 1.1 (1.0-2.1); ALBUMIN 4.4 g/dL (3.5-5.0); BLOOD UREA NITROGEN 23 mg/dl (9-20); CALCIUM 9.1 mg/dL (8.4-10.2); GFR NON-AFRICAN AMERICAN > 60; LIPASE 128 U/L (23-300)
[2018-11-13 15:35] LABS: ALT/SGPT 45 U/L (21-72); AST/SGOT 38 U/L (17-59)
[2018-11-13 16:05] LABS: BARBITURATES, UR NEGATIVE (NEGATIVE); BENZODIAZEPINES, UR NEGATIVE (NEGATIVE); OPIATES, UR NEGATIVE (NEGATIVE); PHENCYCLIDINE, UR POSITIVE (NEGATIVE)
[2018-11-13 18:33] VITALS: BP 132/90; PULSE 99; RESP 19; TEMP 98.4; O2SAT 97
== END 2018-11-13 18:32 | disposition home or self-care (01) ==
LOC: H.ER 11:49
DX: E86.0 Dehydration (principal); R11.10 Vomiting, unspecified; R19.7 Diarrhea, unspecified; F19.10 Other psychoactive substance abuse, uncomplicated
CPT/HCPCS: 80053; 80320; 80324; 80345; 80346; 80349; 80353; 80358; 80361; 83690; 83992; 85025; 96361; 96374; 96375; 99284; J2405; J7030

== ENCOUNTER 2019-02-03 00:48 | Emergency (ER) | payer MEDICAID ==
[2019-02-03 00:49] VITALS: BMI 38.7
[2019-02-03] MEDS ORDERED: Bacitracin 500 Units/gm Oint Foilpak UD TOP STA (01:43)
--- NOTE | 2019-02-03 01:48 | ED PDOC ---
HPI: Trauma/Fall - HPI Time Seen by Provider: 02/03/19 01:25 Chief Complaint (Nursing): Abnormal Skin Integrity Chief Complaint (Provider): head injury History Per: Patient History/Exam Limitations: no limitations Onset/Duration Of Symptoms: Hrs Location Of Injury: Anterior: Head (forehead) Associated Symptoms: denies: LOC Additional Complaint(s): Tyler Mendez is a 38 year old male, with a past medical history of asthma, who presents to the emergency department for evaluation of a head injury onset today. Patient states he tripped and hit his head against a metal partition on the wall. Patient remembers everything and reports no fall from incident. Patient was concerned he might need stitches which prompted ED visit. He denies any nausea, vomit or other possible injuries. No further medical complaints. PMD: Sonido Gentile Past Medical History Reviewed: Historical Data, Nursing Documentation, Vital Signs Vital Signs: Last Vital Signs Temp 98.7 F 02/03/19 01:00 Pulse 125 H 02/03/19 01:00 Resp 15 02/03/19 01:00 BP 115/82 02/03/19 01:00 Pulse Ox 96 02/03/19 01:00 - Medical History PMH: Asthma Denies: Depression, HIV, Chronic Kidney Disease - Surgical History Surgical History: No Surg Hx - Family History Family History: States: Unknown Family Hx - Social History Ex-Smoker (has not smoked in the last 12 months): Yes Alcohol: None Drugs: Other (PCP in the past) - Home Medications Home Medications: Ambulatory Orders Medication Instructions Recorded Albuterol HFA [Ventolin HFA 90 0.09 mg IH Q4 #1 puff 01/17/18 mcg/actuation (8 g)] Sulfamethoxazole/Trimethoprim 1 tab PO Q12 #10 tab 01/17/18 [Bactrim DS 800 mg-160 mg] Amoxicillin 500 mg PO BID #13 tablet 03/13/18 Ciprofloxacin/Dexamethasone 4 drop OT BID #1 bottle 03/13/18 [Ciprodex 0.3%-0.1% 7.5 Ml] Ibuprofen [Motrin Tab] 800 mg PO Q8 PRN #20 tab 03/13/18 predniSONE [predniSONE Tab] 20 mg PO DAILY #12 tab 07/11/18 Dicyclomine [Dicyclomine HCl] 10 mg PO DAILY PRN 5 Days cap 11/13/18 Ondansetron [Zofran] 4 mg PO Q8H PRN #6 tab 11/13/18 - Allergies Allergies/Adverse Reactions: Allergies Allergy/AdvReac Type Severity Reaction Status Date / Time No Known Allergies Allergy Verified 02/03/19 01:02 Review of Systems ROS Statement: Except As Marked, All Systems Reviewed And Found Negative Gastrointestinal: Negative for: Nausea, Vomiting Skin: Positive for: Other (head injury) Physical Exam - Reviewed Nursing Documentation Reviewed: Yes Vital Signs Reviewed: Yes - Physical Exam Appears: Positive for: No Acute Distress Head Exam: Positive for: NORMAL INSPECTION, NORMOCEPHALIC. Negative for: ATRAUMATIC (Abasion to the center of upper forehead with a small surrounding hematoma. No palpable fracture, no crepitus) Skin: Positive for: Normal Color, Warm, Dry Eye Exam: Positive for: Normal appearance, EOMI, PERRL ENT: Positive for: Normal ENT Inspection Neck: Positive for: Normal (Neck and spine nontender), Painless ROM, Supple Cardiovascular/Chest: Positive for: Regular Rate, Rhythm, Chest Non Tender. Negative for: Murmur Respiratory: Positive for: Normal Breath Sounds. Negative for: Respiratory Distress Gastrointestinal/Abdominal: Positive for: Normal Exam, Soft. Negative for: Tenderness, Guarding, Rebound, Other (ecchymosis) Back: Positive for: Normal Inspection. Negative for: L CVA Tenderness, R CVA Tenderness, Vertebral Tenderness Extremity: Positive for: Normal ROM (upper and lower extremities), Other (Abrasions to fingers, no deformity, full range of motion). 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 Negative for: Motor/Sensory Deficits, Facial Droop - ECG O2 Sat by Pulse Oximetry: 96 (RA) Pulse Ox Interpretation: Normal Medical Decision Making Medical Decision Making: Time: 01:25 A/P: 38 year old male presenting for minor head injury. No head CT needed, will dress wound, apply Bacitracin and discharge Initial Plan: --Bacitracin Ointment 1 applic TOP --Motrin tab 600mg PO --Reevaluation 01:40 Upon provider evaluation patient is medically stable, and requires no further treatment in the ED at this time. Patient will be discharged home. Counseling was provided and all questions were answered regarding diagnosis. There is agreement to discharge plan. Return if symptoms persist or worsen. Scribe Attestation: Documented by Jhony Tao, acting as a scribe for Tom Pulido MD Provider Scribe Attestation: All medical record entries made by the Scribe were at my direction and personally dictated by me. I have reviewed the chart and agree that the record accurately reflects my personal performance of the history, physical exam, medical decision making, and the department course for this patient. I have also personally directed, reviewed, and agree with the discharge instructions and disposition. Disposition - Clinical Impression Clinical Impression: Head injury - Disposition Referrals: [facility] [Outside] Disposition: Routine/Home Disposition Time: 02:24 Condition: IMPROVED Instructions: Skin Abrasions, Closed Head Injury Forms: [employer] (Burkinan)
[2019-02-03] MEDS ORDERED: Bacitracin 500 Units/gm Oint Foilpak UD ONE (02:05)
[2019-02-03 03:11] VITALS: BP 147/77; PULSE 89; RESP 17; TEMP 98.2; O2SAT 99
== END 2019-02-03 02:45 | disposition home or self-care (01) ==
LOC: H.ER 00:48
DX: S09.90XA Unspecified injury of head, initial encounter (principal); Z87.891 Personal history of nicotine dependence; J45.909 Unspecified asthma, uncomplicated; W18.30XA Fall on same level, unspecified, initial encounter

== ENCOUNTER 2019-02-05 15:02 | Emergency (ER) | payer MEDICAID ==
[2019-02-05 15:02] VITALS: BMI 38.7
[2019-02-05 15:32] VITALS: BP 132/88; PULSE 90; RESP 18; TEMP 97.8; O2SAT 99
--- NOTE | 2019-02-05 17:15 | ED PDOC ---
HPI: Headache Time Seen by Provider: 02/05/19 15:32 Chief Complaint (Nursing): Headache Chief Complaint (Provider): Headache History Per: Patient History/Exam Limitations: no limitations Onset/Duration Of Symptoms: Days (x2) Current Symptoms Are (Timing): Still Present Additional Complaint(s): 38 year old male presents to the ED for evaluation of "severe head pain" for the past two days. Patient states that two days ago he was seen here s/p a trip and fall into a brick wall where he sustained a cut to his forehead that he thought needed stitches. At the time, they gave him something for pain, cleaned his cut up, put on an ointment, and was discharged. Since, he has had this constant severe head pain. patient reports he has been taking Tylenol with little to no relief and thinks there is some pus in his head since he thinks it has began to swell. Notes the pain is so severe it wakes him up in the middle of the night, but otherwise denies vision changes, difficulty walking, neck pain, drainage from abrasion, fever, light headedness, and dizziness. PMD: Kaiden Crandall Past Medical History Reviewed: Historical Data, Nursing Documentation, Vital Signs Vital Signs: Last Vital Signs Temp 97.8 F 02/05/19 15:30 Pulse 90 02/05/19 15:30 Resp 18 02/05/19 15:30 BP 132/88 02/05/19 15:30 Pulse Ox 99 02/05/19 15:30 - Medical History PMH: Asthma Denies: Depression, HIV, Chronic Kidney Disease - Surgical History Surgical History: No Surg Hx - Family History Family History: States: Unknown Family Hx - Social History Current smoker - smoking cessation education provided: Yes Alcohol: None Drugs: Other (PCP in the past) - Home Medications Home Medications: Ambulatory Orders Medication Instructions Recorded Albuterol HFA [Ventolin HFA 90 0.09 mg IH Q4 #1 puff 01/17/18 mcg/actuation (8 g)] Sulfamethoxazole/Trimethoprim 1 tab PO Q12 #10 tab 01/17/18 [Bactrim DS 800 mg-160 mg] Amoxicillin 500 mg PO BID #13 tablet 03/13/18 Ciprofloxacin/Dexamethasone 4 drop OT BID #1 bottle 03/13/18 [Ciprodex 0.3%-0.1% 7.5 Ml] Ibuprofen [Motrin Tab] 800 mg PO Q8 PRN #20 tab 03/13/18 predniSONE [predniSONE Tab] 20 mg PO DAILY #12 tab 07/11/18 Dicyclomine [Dicyclomine HCl] 10 mg PO DAILY PRN 5 Days cap 11/13/18 Ondansetron [Zofran] 4 mg PO Q8H PRN #6 tab 11/13/18 Ibuprofen [Motrin Tab] 600 mg PO Q6 PRN #20 tab 02/05/19 - Allergies Allergies/Adverse Reactions: Allergies Allergy/AdvReac Type Severity Reaction Status Date / Time No Known Allergies Allergy Verified 02/05/19 15:30 Review of Systems ROS Statement: Except As Marked, All Systems Reviewed And Found Negative Constitutional: Negative for: Fever Eyes: Negative for: Vision Change Cardiovascular: Negative for: Light Headedness Musculoskeletal: Negative for: Neck Pain Skin: Negative for: Other (drainage from head abrasion) Neurological: Positive for: Headache (severe). Negative for: Dizziness, Other (difficulty walking) Physical Exam - Reviewed Nursing Documentation Reviewed: Yes Vital Signs Reviewed: Yes - Physical Exam Comments: GENERAL APPEARANCE: Patient is awake, alert, oriented x 3, in no acute distress. SKIN: Warm, dry; (-) cyanosis; (-) rash. HEAD: (+) [id number] healed abrasion with no surrounding erythema and mild surrounding tenderness to forehead into scalp. Remainder of head non tender with no palpable deformities. EYES: EOMI and PERRLA. (-) conjunctival pallor, (-) scleral icterus. ENMT: (-) sinus tenderness; mucous membranes are moist. NECK: (-) tenderness, (-) stiffness, (-) meningismus, (-) lymphadenopathy. CHEST AND RESPIRATORY: (-) rales, (-) rhonchi, (-) wheezes; breath sounds equal bilaterally. HEART AND CARDIOVASCULAR: (-) irregularity; (-) murmur, (-) gallop. ABDOMEN AND GI: Soft; (-) tenderness. EXTREMITIES: (-) deformity. NEURO AND PSYCH: Mental status as above. hhas: intact. Pupils equal and reactive; (-) facial asymmetry; tongue and uvula midline. Strength 5/5 in all four extremities. Gait normal and steady. Normal finger to nose. - ECG O2 Sat by Pulse Oximetry: 99 (RA) Pulse Ox Interpretation: Normal Medical Decision Making Medical Decision Making: Time: 154 Initial Impression: possible concussion, r/o brain bleed Initial Plan: --CT head without contrast 1718 CT Head FINDINGS: HEMORRHAGE: No intracranial hemorrhage. BRAIN: Venegas-white matter differentiation is preserved. There is no mass, mass effect or abnormal extra-axial fluid collection. There is no territorial infarction. The midline sagittal structures are normal. VENTRICLES: The ventricles are normal in size, shape and configuration. CALVARIUM: There is no calvarial fracture or extracranial soft tissue swelling. PARANASAL SINUSES: Predominantly clear. MASTOID AIR CELLS: Predominantly clear. OTHER FINDINGS: None. IMPRESSION: No acute intracranial abnormality. [address] Informed patient of normal CT results and discussed how concussions are clinically diagnosed and there would be nothing to see on a CT. Patient is reporting his head pain is still severe, so Toradol 30mg IM ordered. 17:55 Pt reports feeling much improvement of pain since being given medication and is ready to go home pt is neurologically intact, concussion precautions discussed, pt is stable for dc discussed results, diagnosis, treatment, return precautions and f/u with pt who is understanding, in agreement and stable for dc Scribe Attestation: Documented by Lucia Lovell acting as a scribe for Ben Matson PA-C. Provider Scribe Attestation: All medical record entries made by the Scribe were at my direction and personally dictated by me. I have reviewed the chart and agree that the record accurately reflects my personal performance of the history, physical exam, medical decision making, and the department course for this patient. I have also personally directed, reviewed, and agree with the discharge instructions and disposition. Disposition - Clinical Impression Clinical Impression: Concussion - Patient ED Disposition Is Patient to be Admitted: No Counseled Patient/Family Regarding: Studies Performed, Diagnosis, Need For Followup, Rx Given - Disposition Referrals: Kaiden Crandall MD [Medical Doctor] - Disposition: Routine/Home Disposition Time: 17:58 Condition: STABLE Additional Instructions: Return to ED for new or worsening symptoms, fever >100.4, changes in vision. Follow up with your primary doctor. Take medications as prescribed Thank you for letting us take care of you today. You were treated for concussion. The emergency medical care you received today was directed at your acute symptoms. If you were prescribed any medication, please fill it and take as directed. It may take several days for your symptoms to resolve. Return to the Emergency Department if your symptoms worsen, do not improve, or if you have any other problems. Please contact your doctor in 2 days for re-evaluation and follow up / or call one of the physicians/clinics you have been referred to that are listed on the Patient Visit Information form that is included in your discharge packet. Bring any paperwork you were given at discharge with you along with any medications you are taking to your follow up visit. Our treatment cannot replace ongoing medical care by a primary care provider (PCP) outside of the emergency department. Prescriptions: Ibuprofen [Motrin Tab] 600 mg PO Q6 PRN #20 tab PRN Reason: Pain, Moderate (4-7) Forms: [facility] (Iraqi) Print Language: UZBEK - POA Present On Arrival: None
--- NOTE | 2019-02-05 17:23 | CT ---
Date of service: 02/05/2019 PROCEDURE: CT HEAD WITHOUT CONTRAST. HISTORY: severe pain s/p trauma COMPARISON: 02/19/2018. TECHNIQUE: Axial computed tomography images were obtained through the head/brain without intravenous contrast. Radiation dose: Total exam DLP = 894.03 mGy-cm. This CT exam was performed using one or more of the following dose reduction techniques: Automated exposure control, adjustment of the mA and/or kV according to patient size, and/or use of iterative reconstruction technique. FINDINGS: HEMORRHAGE: No intracranial hemorrhage. BRAIN: Venegas-white matter differentiation is preserved. There is no mass, mass effect or abnormal extra-axial fluid collection. There is no territorial infarction. The midline sagittal structures are normal. VENTRICLES: The ventricles are normal in size, shape and configuration. CALVARIUM: There is no calvarial fracture or extracranial soft tissue swelling. PARANASAL SINUSES: Predominantly clear. MASTOID AIR CELLS: Predominantly clear. OTHER FINDINGS: None. IMPRESSION: No acute intracranial abnormality.
== END 2019-02-05 18:25 | disposition home or self-care (01) ==
LOC: H.ER 15:02
DX: F07.81 Postconcussional syndrome (principal); F17.200 Nicotine dependence, unspecified, uncomplicated
CPT/HCPCS: 70450; 96372; 99285; J1885

== ENCOUNTER 2019-04-01 04:29 | Emergency (ER) | payer MEDICAID ==
[2019-04-01 04:30] VITALS: BMI 38.7
--- NOTE | 2019-04-01 05:33 | ED PDOC ---
HPI: General Adult Time Seen by Provider: 04/01/19 05:06 Chief Complaint (Nursing): Trauma Chief Complaint (Provider): Back pain s/p fall History Per: Patient History/Exam Limitations: no limitations Onset/Duration Of Symptoms: Hrs Have you had recent travel within the past 21 days to any of the following countries: [place], [place], [place] or [place]?: No Current Symptoms Are (Timing): Still Present Additional Complaint(s): 38 yo male presents with back pain after a fall. Pt states at 7pm yesterday he slipped on the wet floor and fell lading on steps outside of his cousins house. Pt reports increased pain in the area where his back landed on the steps. Pt did not take anything at home for pain. No numbness/tingling. No bladder or bowel incontinence. Past Medical History Reviewed: Historical Data, Nursing Documentation, Vital Signs Vital Signs: Last Vital Signs Temp 98.4 F 04/01/19 04:49 Pulse 109 H 04/01/19 04:49 Resp 18 04/01/19 04:49 BP 119/67 04/01/19 04:49 Pulse Ox 98 04/01/19 04:49 Primary Care Provider: Non [facility] Provider, - Medical History PMH: Asthma Denies: Depression, HIV, Chronic Kidney Disease - Surgical History Surgical History: No Surg Hx - Family History Family History: States: Unknown Family Hx - Living Arrangements Living Arrangements: With Family - Social History Current smoker - smoking cessation education provided: No - Home Medications Home Medications: Ambulatory Orders Medication Instructions Recorded Albuterol HFA [Ventolin HFA 90 0.09 mg IH Q4 #1 puff 01/17/18 mcg/actuation (8 g)] Sulfamethoxazole/Trimethoprim 1 tab PO Q12 #10 tab 01/17/18 [Bactrim DS 800 mg-160 mg] Amoxicillin 500 mg PO BID #13 tablet 03/13/18 Ciprofloxacin/Dexamethasone 4 drop OT BID #1 bottle 03/13/18 [Ciprodex 0.3%-0.1% 7.5 Ml] Ibuprofen [Motrin Tab] 800 mg PO Q8 PRN #20 tab 03/13/18 predniSONE [predniSONE Tab] 20 mg PO DAILY #12 tab 07/11/18 Dicyclomine [Dicyclomine HCl] 10 mg PO DAILY PRN 5 Days cap 11/13/18 Ondansetron [Zofran] 4 mg PO Q8H PRN #6 tab 11/13/18 Ibuprofen [Motrin Tab] 600 mg PO Q6 PRN #20 tab 02/05/19 Ibuprofen [Motrin Tab] 800 mg PO Q6H PRN #20 tab 04/01/19 - Allergies Allergies/Adverse Reactions: Allergies Allergy/AdvReac Type Severity Reaction Status Date / Time No Known Allergies Allergy Verified 04/01/19 04:52 Review of Systems ROS Statement: Except As Marked, All Systems Reviewed And Found Negative Constitutional: Negative for: Fever, Chills Respiratory: Negative for: SOB with Exertion, Pleuritic Pain Gastrointestinal: Negative for: Nausea, Vomiting, Abdominal Pain Genitourinary Male: Negative for: Dysuria, Frequency, Rash, Penile Pain Musculoskeletal: Positive for: Back Pain. Negative for: Neck Pain, Shoulder Pain Skin: Positive for: Other Physical Exam - Reviewed Nursing Documentation Reviewed: Yes Vital Signs Reviewed: Yes - Physical Exam Appears: Positive for: Well, Non-toxic, No Acute Distress Head Exam: Positive for: ATRAUMATIC, NORMAL INSPECTION, NORMOCEPHALIC Skin: Positive for: Warm. Negative for: Normal Color (Superficial abrasion on middle/upper back linear distribution) Eye Exam: Positive for: Normal appearance ENT: Positive for: Normal ENT Inspection Neck: Positive for: Normal, Painless ROM Cardiovascular/Chest: Positive for: Regular Rate, Rhythm Respiratory: Positive for: Normal Breath Sounds. Negative for: Accessory Muscle Use, Respiratory Distress Back: Positive for: Normal Inspection Extremity: Positive for: Normal ROM Neurological/Psych: Positive for: Awake, Alert, Normal Tone - ECG O2 Sat by Pulse Oximetry: 98 Pulse Ox Interpretation: Normal Medical Decision Making Medical Decision Making: XR normal. Disposition - Clinical Impression Clinical Impression: Back contusion - Patient ED Disposition Is Patient to be Admitted: No - Disposition Referrals: Kaiden Crandall MD [Primary Care Provider] - Disposition: Routine/Home Disposition Time: 05:42 Condition: GOOD Prescriptions: Ibuprofen [Motrin Tab] 800 mg PO Q6H PRN #20 tab PRN Reason: Pain Instructions: Contusion (DC) Forms: [employer] (Slovenian)
[2019-04-01 05:54] VITALS: BP 123/76; PULSE 91; RESP 15; TEMP 98; O2SAT 97
--- NOTE | 2019-04-01 09:23 | RAD ---
Date of service: 04/01/2019 HISTORY: pain, fall COMPARISON: Chest radiographs 01/16/2018. TECHNIQUE: 2 views obtained. FINDINGS: BONES: Straightened thoracic curvature reiterated. No fracture or spondylolisthesis appreciated throughout. Minimal multilevel thoracic spondylosis identified. Minimal scoliotic deformity thoracic spine. DISC SPACES: Minimal multilevel spondylosis. SOFT TISSUES: Normal. OTHER FINDINGS: None. IMPRESSION: Straightened thoracic curvature without fracture or spondylolisthesis appreciated. Limited scoliotic deformity. Overall straightening of the thoracic spine not simply changed. Prior lateral views from chest radiograph 01/16/2018.
== END 2019-04-01 05:54 | disposition home or self-care (01) ==
LOC: H.ER 04:29
DX: S30.0XXA Contusion of lower back and pelvis, initial encounter (principal); W01.0XXA Fall on same level from slipping, tripping and stumbling without subsequent striking against object, initial encounter; Y92.89 Other specified places as the place of occurrence of the external cause